=== PATIENT | male | born 1950 | race Hispanic/Latino ===

== ENCOUNTER 2017-06-01 20:34 | Emergency (ER) | payer MEDICARE, OTHER ==
[~2017-06-01] VITALS: Ht 160 cm; Wt 90.9 kg
[~2017-06-01 20:34] MED LIST: Aspirin PO; CLOP75TA3 PO; LISI-609 PO; Metoprolol Tartrate PO; SIMV40TA5 PO
[2017-06-01 20:56] VITALS: BP 168/111; PULSE 94; RESP 18; O2SAT 97
--- NOTE | 2017-06-01 21:11 | ED.REPORT ---
HPI-Abd Pain M 40 and Over Date of Service Jun 01, 2017 ED Provider: Norris Reza MD The pt is a 66 y/o male w/ a hx of HTN, CAD, and an RI in 2014 presenting to the ED complaining of nausea onset this morning. He describes a feeling of being "bloated" in his stomach which is causing him to be anxious as well. His describes the pt eating [place] food with a new type of noble that may have caused his symptoms. The pt also describes having a single dark black stool today, but no overt bleeding. He admits to drinking 4-5 beers a day. Denies vomiting, heart burn, chest pain, changes in urination or defecation. Nursing Notes Stated Complaint: NAUSEA/BLOATED Chief Complaint: Male Abdominal Pain Nursing Notes Reviewed: Yes Allergies: Coded Allergies: Penicillins (Verified Allergy, Unknown, 06/01/17) Scheduled ([Aspirin]) 325 MG TABLET 325 MG PO DAILY ([Metoprolol Tartrate]) 25 MG TABLET 12.5 MG PO TID Clopidogrel Bisulfate (Plavix) 75 Mg Tablet 75 MG PO DAILY Lisinopril (Zestril) 5 Mg Tablet 5 MG PO BID Omeprazole (Omeprazole) 20 Mg Tablet.dr 20 MG PO BID Ondansetron ODT (Ondansetron ODT) 8 Mg Tab.rapdis 8 MG PO QID Simvastatin (Simvastatin) 40 Mg Tablet 40 MG PO HS General Time Seen by MD: 21:10 Chief Complaint Nausea Hx Obtained From: Patient Arrived By: Walk-in Sudden in Onset?: Yes Onset Occurred: 9 - 12 hours ago Symptom Duration: Since onset Recent Healthcare: No recent doctor visit, No recent hospitalization Similar Sx Previous: No Past Medical History Past Medical History Notes: Both older brothers have heart disease. One of an RI. Past Medical History Hypertension RI in 2015 CAD Past Surgical History None reported Smoking History Never Smoker Social History Alcohol Use: 3-5 per day Drug Use: Denies drug use Other Social History: Good social support Ambulatory Status Independent Review of Systems Denies acid reflux Cardiovascular: Denies: Chest pain GI: Reports: Abdominal pain, Melena, Nausea, Denies: Constipation, Diarrhea, Vomiting Male: Denies Dysuria, Denies Hematuria Complete sys rev & neg: except as marked. Psychiatric: Reports: Anxiety Physical Exam Initial Vital Signs Vital Signs (First) Date Time Temp Pulse Resp B/P Pulse Ox O2 Delivery O2 Flow Rate FiO2 06/01/17 20:56 37.2 94 18 168/111 97 Room Air Initial VS: Reviewed Neck: Supple, Non-tender, Full range of motion Extremities: Vascular intact, Neuro intact, No swelling, No tenderness Skin: Warm, Dry, No cyanosis Neurologic: Alert, Oriented, Nonfocal Psychiatric: Mood/affect normal, Behavior normal, Normal thought content General/Constitutional: Awake, Alert Appearance / Presentation: Positive: Obese Respiratory / Chest: Atraumatic, Breath sounds NL, Breath sounds = bilat, No respiratory distress, No rales, No rhonchi, No wheezing Cardiovascular: Regular rhythm, Heart sounds NL, Peripheral circulation NL Heart Rate / Rhythm: Positive: Tachycardia (Borderline ) Abdomen: Atraumatic, Soft Mild tenderness Bloated Back: Atraumatic, Full range of motion Head / Eyes: Atraumatic, Normocephalic Interpretation & Diagnostics Lab Results Interpretation Result Diagram: 06/01/17215406/01/17 215 Test 06/01/17 21:55 06/01/17 23:03 White Blood Count 8.5th/mm3 (3.8-10.1) Red Blood Count 4.34mil/mm3 (4.40-5.80) Hemoglobin 11.9g/dL (13.8-17.2) Hematocrit 36.8% (41.0-50.0) Mean Corpuscular Volume 84.8fL (81-100) Mean Corpuscular Hemoglobin 27.4pg (27.0-35.0) Mean Corpuscular Hemoglobin Concent 32.3% (32.0-37.0) Red Cell Distribution Width 14.2% (12.3-15.4) Platelet Count 220bil/L (150-400) Neutrophils (%) (Auto) 84.8% (40-74) Lymphocytes (%) (Auto) 6.4% (14-46) Monocytes (%) (Auto) 7.2% (4-12) Eosinophils (%) (Auto) 1.3% (0-5) Basophils (%) (Auto) 0.2% (0-3) Prothrombin Time 10.1sec (8.1-12.5) Prothromb Time International Ratio 0.95ratio Sodium Level 131mEq/L (134-144) Potassium Level 4.3mEq/L (3.5-5.2) Chloride Level 93mEq/L (97-108) Carbon Dioxide Level 20mmol/L (18-29) Blood Urea Nitrogen 11mg/dL (8-27) Creatinine 0.84mg/dL (0.76-1.27) Estimat Glomerular Filtration Rate 97mL/min (>59) Glucose Level 121mg/dL (60-99) Lactic Acid Level 1.4mmol/L (0.4-2.0) Calcium Level 8.9mg/dL (8.5-10.1) Magnesium Level 1.8mg/dL (1.6-2.6) Total Bilirubin 0.6mg/dL (0.0-1.2) Aspartate Amino Transf (AST/SGOT) 13U/L (0-50) Alanine Aminotransferase (ALT/SGPT) 14U/L (0-44) Alkaline Phosphatase 74U/L (25-160) Total Protein 7.2g/dL (6.4-8.4) Albumin 3.9g/dL (3.4-5.0) Lipase 428U/L (13-60) Urine Color Dark yellow (YELLOW) Urine Appearance Clear (CLEAR,HAZY) Urine pH 6.0 (5.0-8.0) Urine Specific [place] 1.020 (1.003-1.035) Urine Protein Tracemg/dL (NEG,TRACE) Urine Glucose (UA) Negativemg/dL (NEGATIVE) Urine Ketones Tracemg/dL (NEGATIVE) Urine Occult Blood Small (NEGATIVE) Urine Nitrite Negative (NEGATIVE) Urine Bilirubin Negative (NEGATIVE) Urine Urobilinogen Normalmg/dL (NORMAL) Urine Leukocyte Esterase Negative (NEGATIVE) Urine RBC 0-2/hpf (0-2) Urine WBC 0-5/hpf (0-5) Urine Epithelial Cells Occasional/hpf (NONE-MOD) Urine Crystals None seen (NONE SEEN) Urine Bacteria Few/hpf (NONE-FEW) Urine Hyaline Casts None/lpf (NONE) Urine Granular Casts None seen (NONE SEEN) Urine Waxy Casts None seen (NONE SEEN) Urine Red Blood Cell Casts None seen (NONE SEEN) Urine White Blood Cell Casts None seen (NONE SEEN) Urine Mucus None seen (None Seen) Urine Trichomonas None seen (NONE SEEN) Urine Yeast None (NONE SEEN) Urinalysis Comment None Urine Culture Reflexed Not indicated ECG Interpretation ECG Interpretation: Rate 96 Normal sinus rhythm NSSTTWDS laterally Time: 21:18 Interpreted by: ED physician X-Ray Chest Interpretation Chest Xray Interpretation: Impression: No acute findings View: Portable, 1 view Interpretation / Wet Read by: Wet read ED physician CT Abd / Pelvis Interpretation Conclusion: Probable duodenitis versus duodenal ulcer. No definite perforation. Fatty liver. Diverticulosis w/o diverticulitis. These findings were discussed with Dr. Reza at 06/01/17 11:23:14 PM PDT. Study type: Abdominal CT IV contrast Interpretation / Wet Read by: Interpret - Radiologist Re-Eval/Medical Decision Med Decision/Clinical Course 66-year-old presents with bloating, dark stool, and epigastric pain. He drinks and acknowledged 4-5 beers a day. Family considers this a problem. A CT scan shows duodenitis with some hazy infiltration around the duodenum. Labs show some mild pancreatitis that may just be due to proximity to the inflamed duodenum. Pancreas itself does not appear to be inflamed. He appears to have evidence of thinning of the duodenum in early duodenal ulcer. Hemoglobin is normal. He is directed to begin omeprazole at twice a day dosing, discontinue all alcohol and acidotic food, and to follow up closely with his doctor this week. Prompt return if continued bleeding or melena. Source of Hx: Old records Time of Eval: 23:37 Re-Evaluation/Progress Note: Pt rechecked. Informed pt of plan for treatment. Pt understands and agrees with plan for treatment. F/U instructions and RTER warnings given. All questions addressed. Counseled Regarding: Diagnosis, Lab results, Need for follow-up, When/why to return to ED Discharge & Departure Primary Impression: Duodenal ulcer Additional Impressions: Pancreatitis Chronicity: acute Pancreatitis type: unspecified pancreatitis type Acute pancreatitis complication: unspecified Qualified Code: K85.90 - Acute pancreatitis without necrosis or infection, unspecified Duodenitis Disposition: Home Vital Signs - All Vital Signs Date Time Temp Pulse Resp B/P Pulse Ox O2 Delivery O2 Flow Rate FiO2 06/02/17 00:17 36.9 86 18 154/94 99 Room Air 06/01/17 20:56 37.2 94 18 168/111 97 Room Air )( All Prior VS Reviewed: Yes Condition: Stable Additional Instructions: Do not drink any alcohol for the next eight weeks at a minimum. He might use this opportunity to quit drinking permanently. Avoid acid foods and juices, particularly soda pop, fruit juices, and again alcohol. Avoid excessive caffeine use. Eat a relatively low-fat diet. Follow-up this week with your doctor. Call first thing Friday morning for appointment in the next 2-3 days at the latest. Return here promptly if you see continued black stools, if you become dizzy or weak, if you have worsening pain, or if you are unable to eat and drink. Begin omeprazole twice daily, and continue for eight weeks. Referrals: Chin Almazan MD (PCP) [facility] Scribe Attestation Portions of this note were transcribed by Nemesio Yanes. I, Dr. Reza personally performed the history, physical exam and medical decision-making; I reviewed and confirmed the accuracy of the information in the transcribed note. Signed by : Anne-Marie Boothe, 06/01/17 and 2675. copies to: [facility] CLI; Chin Almazan MD, Christopher W MD Jun 01, 2017 21:11 Nemesio Yanes Jun 01, 2017 21:40
[2017-06-01] MEDS ORDERED: 0.9% Sodium Chloride 1,000 ML IV ONE (21:27)
[2017-06-01] MEDS ORDERED: Pantoprazole 40 mg ER24 Tablet PO ONE (21:30)
[2017-06-01] MEDS ORDERED: Iohexol 300 mg/mL 30 mL Inj PO ONE (21:30)
[2017-06-01] MEDS ORDERED: Ondansetron 2 mg/mL 2 mL Inj IVPUSH ONE (21:30)
[2017-06-01 22:25] LABS: Mean Corpuscular Hemoglobin 27.4 pg (27.0-35.0); Mean Corpuscular Volume 84.8 fL (81-100)
[2017-06-01 22:26] LABS: BASOPHILS % (AUTO) 0.2 % (0-3); EOSINOPHILS % (AUTO) 1.3 % (0-5); MONOCYTES % (AUTO) 7.2 % (4-12); NEUTROPHILS % (AUTO) 84.8 % (40-74); Platelet Count 220 bil/L (150-400)
[2017-06-01 22:38] LABS: INR 0.95 ratio
[2017-06-01 22:44] LABS: Magnesium 1.8 mg/dL (1.6-2.6)
[2017-06-01 23:24] LABS: APPEARANCE,URINE CLEAR (CLEAR,HAZY); COLOR,URINE DARK YELLOW (YELLOW); OCCULT BLOOD,URINE SMALL (NEGATIVE); UROBILINOGEN,URINE NORMAL (NORMAL)
[2017-06-01] MEDS ORDERED: ONDA8TAB10 PO (23:48)
[2017-06-01] MEDS ORDERED: OMEP20TA86 PO (23:48)
[2017-06-02 00:17] VITALS: BP 154/94; PULSE 86; RESP 18; O2SAT 99
--- NOTE | 2017-06-02 08:16 | DRSVH ---
PROCEDURE: CT ABDOMEN AND PELVIS WITH CONTRAST ([id number]) INDICATIONS: upper abdo pain, bloating TECHNIQUE: After the administration of oral and intravenous contrast, 5 mm thick sections acquired from the diap hragms to the symphysis. 5 mm thick coronal and sagittal reformats were performed. For radiation do se reduction, the following was used: automated exposure control, adjustment of mA and/or kV accordi ng to patient size. COMPARISON: None. FINDINGS: Preliminary report by shift mgr radiology Image quality: Excellent. ABDOMEN: Lung bases: Lung bases are clear. Heart size is normal. Coronary artery calcifications. Solid organs: Liver and spleen are normal in size, liver showing homogeneous decreased attenuation. Splenule is present. Gallbladder appears normal. Biliary system is non-dilated. Pancreas enhances n ormally. No adrenal nodules. Kidneys are normal in size and enhancement, without hydronephrosis. Peritoneum and bowel: Small amount of fat stranding is present at the head of the pancreas and aroun d the second portion of duodenum suggesting underlying inflammation. There is slight wall thickening in the second portion of duodenum. Stomach, small bowel, and colon loops are normal in caliber and wa ll thickness. Mild colonic diverticulosis without diverticulitis. Normal appendix. No free fluid or air. Nodes and vessels: No retroperitoneal or mesenteric adenopathy. Atheromatous aorta and inferior vena cava are normal in caliber. Miscellaneous: No ventral hernias. PELVIS: Genitourinary: Bladder wall thickness is thickened however bladder is nondistended. Prostate appears normal in size.. Miscellaneous: No inguinal hernias or adenopathy. Bones: No suspicious bony lesions. Disc narrowing L4-5. No vertebral body compression fractures. IMPRESSION: 1. Focal inflammatory disease in the descending portion of the duodenum and surrounding the head of p ancreas, suspect for duodenitis with possible peptic ulcer disease. Suggest air-contrast upper GI ser ies. Evaluation of pancreatic enzymes also suggested to exclude low grade pancreatitis. 2. Hepatic steatosis. 3. Atherosclerosis without aneurysm. 4. Colonic diverticulosis without diverticulitis. 5. Suggestion of bladder wall thickening and cellule formation but indeterminate as bladder is nondis tended. Findings are concordant with the preliminary report. Dictated by: Arnol Stewart M.D. on 06/02/2017 at 8:05 Approved by: Arnol Stewart M.D. on 06/02/2017 at 8:14
--- NOTE | 2017-06-02 09:45 | DRSVH ---
PROCEDURE: X-RAY CHEST ONE VIEW, PORTABLE ([id number]) INDICATIONS: upper abdo pain, nausea TECHNIQUE: One view of the chest was acquired. COMPARISON: 03/13/2007 FINDINGS: Surgical changes and devices: None. Lungs and pleura: No pleural effusions or pneumothorax. Lungs are clear. Mediastinum: Mediastinal contours appear normal. Heart size is enlarged. Bones and chest wall: No suspicious bony lesions. Overlying soft tissues appear unremarkable. IMPRESSION: 1. Cardiomegaly without evidence of congestive heart failure. 2. No acute pulmonary abnormality. Dictated by: Arnol Stewart M.D. on 06/02/2017 at 9:42 Approved by: Arnol Stewart M.D. on 06/02/2017 at 9:43
== END 2017-06-02 00:19 | disposition home or self-care (01) ==
LOC: SED 20:34
DX: K26.9 Duodenal ulcer, unspecified as acute or chronic, without hemorrhage or perforation (principal); K85.90 Acute pancreatitis without necrosis or infection, unspecified; K29.80 Duodenitis without bleeding; I10 Essential (primary) hypertension; I25.2 Old myocardial infarction; I25.10 Atherosclerotic heart disease of native coronary artery without angina pectoris
CPT/HCPCS: 36415; 71010; 74177; 80053; 81000; 83605; 83690; 83735; 85025; 85610; 93005; 96361; 96374; 99285; J2405; J7030; Q9967